=== PATIENT | female | born 1995 | race Caucasian/White ===

== ENCOUNTER 2016-11-21 17:43 | Emergency (ER) | payer MEDICAID ==
[~2016-11-21 17:43] MED LIST: DOXY100T PO; IBUP-232 PO
[2016-11-21 18:46] LABS: MEAN CELL VOLUME 91.2 FL (80.0-100.0); MEAN CORPUSCULAR HEMOGLOBIN 31.6 PG (27.0-34.0); MEAN CORPUSCULAR HGB CONC 34.6 % (32.0-36.0); PLATELET COUNT 200 TH/MM3 (150-450); RED BLOOD COUNT 3.62 MIL/MM3 (4.00-5.30); REVIEW FLAG FINAL; WHITE BLOOD COUNT 13.9 TH/MM3 (4.0-11.0)
[2016-11-21 18:55] LABS: BACTERIA, URINE RARE /hpf; BLOOD, URINE NEG (NEG); COMMENT (UR) CULT NOT INDICATED; CULTURE IF INDICATED CULT NOT INDICATED; GLUCOSE,URINE NEG (NEG); KETONE, URINE NEG (NEG); MUCUS URINE MANY /lpf (OCC); NITRITE,URINE NEG (NEG); SQUAMOUS EPITHELIAL CELL URINE 3 /hpf (0-5); URINE COLOR YELLOW (YELLW/STRAW)
[2016-11-21 19:03] LABS: ANION GAP 8 MEQ/L (5-15); AST (GOT) 14 U/L (15-37); BICARBONATE 22.7 MEQ/L (21.0-32.0); BLOOD UREA NITROGEN 8 MG/DL (7-18); CHLORIDE 104 MEQ/L (98-107); GLOMERULAR FILTRATION RATE 153 ML/MIN (>89); POTASSIUM 3.2 MEQ/L (3.5-5.1); SODIUM (NA) 135 MEQ/L (136-145)
[2016-11-21 19:04] LABS: ALT (GPT) 19 U/L (10-53)
[2016-11-21 19:06] LABS: ALKALINE PHOSPHATASE 87 U/L (45-117); TOTAL BILIRUBIN ADULT 0.2 MG/DL (0.2-1.0)
--- NOTE | 2016-11-21 19:45 | PD ---
HPI Chief Complaint Right-sided back pain, cramping Date Seen: Nov 21, 2016 Travel History International Travel<30 Days: No Contact w/Intl Traveler<30Days: No Known Affected Area: No History of Present Illness HPI Patient is 21-year-old white female at 26 weeks who is unregistered now and relocated back here she has appt with [facility]. She presents complaining of the several days of her right-sided back pain and pain in her right upper quadrant rib area also abdominal lower abdominal cramping, no bleeding or leakage of fluid, no contractions seen. heart rate tracing is reactive. Para: 2 : 3 History Obstetric History Obstetric History 2 vaginal deliveries Social History Alcohol Use: No Tobacco Use: No Substance Abuse: No Allergies-Medications (Allergen,Severity, Reaction): Coded Allergies: ampicillin (Unverified Allergy, Severe, rash, 11/18/16) penicillin G (Unverified Allergy, Severe, RASH, 11/18/16) Home Meds Active Scripts Ibuprofen (Motrin)600 Mg [id number] Mg PO TID #45 TAB Prov:Gama Vasquez MD 04/20/15 Doxycycline Hyclate 100 mg 100 Mg [id number] Mg PO BID #20 CAP Prov:Gama Vasquez MD 04/20/15 Review of Systems General / Constitutional: No: Fever, Weight Gain, Chills, Other Eyes: No: Diploplia, Blurred Vision, Visual changes, Pain, Photophobia HENT: No: Headaches, Vertigo, Lightheadedness Cardiovascular: No: Irregular Rhythm, Chest Pain or Discomfort, Palpitations, Tachycardia, Syncope, Varicosities, Edema, Cyanosis Respiratory: No: Cough, Short of Breath, Other Gastrointestinal: Abdominal Pain, No: Nausea, Vomiting, Diarrhea Genitourinary: No: Decreased Urinary Output, Oliguria Musculoskeletal: No: Limited ROM, Weakness, Cramping, Edema, Pain Skin: No Rash, No Itching, No Dryness, No Lumps, No Change in Pigmentation, No Change in Nails, No Alopecia, No Lesions Neurologic: No: Weakness, Dizziness, Syncope, Focal Abnormalities, Coordination Problem, Headache, Slurred Speech, Seizures Psychiatric: No: Depression, Suicidal Ideations, Homicidal Ideation Endocrine: No: Heat Intolerance, Cold Intolerance, Polydipsia, Polyuria, Other Physical Exam Narrative GENERAL: Well-nourished, well-developed patient. SKIN: Warm and dry. HEAD: Normocephalic and atraumatic. EYES: No scleral icterus. No injection or drainage. ENT: No nasal drainage noted. Mucous membranes pink. Airway patent. NECK: Supple, trachea midline. No JVD. CARDIOVASCULAR: Regular rate and rhythm without murmurs, gallops, or rubs. RESPIRATORY: Breath sounds equal bilaterally. No accessory muscle use. BREASTS: Bilateral exam showed no masses , no retractions, no nipple discharge. ABDOMEN/GI: Abdomen soft, non-tender, bowel sounds present, no rebound, no guarding , some tenderness in RUQ over ribs ,minimal CVAT on R, Gravid to [-26] weeks size Fundal Height: [26-] GENITOURINARY: External Genitalia: intact and normal in appearance BUS glands: [-] Cervix: [Closed-] Dilatation: [Closed-] Effacement: [-]thick Station: [-3] ] Membranes: [intact ] Uterine Contractions: [-none] FHT's: Category: [1-] Baseline: [133-] Reactive: [-yes] Variability: [mod-] Decels: [-none] EXTREMITIES: No cyanosis or edema. BACK: Nontender without obvious deformity. No CVA tenderness. NEUROLOGICAL: Awake and alert. Motor and sensory grossly within normal limits. Five out of 5 muscle strength in all muscle groups. Normal speech. Data Data Orders Vital Signs (Adult) .ON ADMISSION (11/21/16 18:16) ^ Labor Status (11/21/16 18:16) Urinalysis - C+S If Indicated (11/21/16 18:16) Cbc No Diff, Includes Plts (11/21/16 18:16) Comprehensive Metabolic Panel (11/21/16 18:16) Ob/Psych Drug Screen, Urine (11/21/16 18:16) Hepatitis Profile (11/21/16 18:23) Ur Bath Salts (11/21/16 18:15) Ur Heroin (11/21/16 18:15) Ur K2 Spice (11/21/16 18:15) Ur Ecstasy (11/21/16 18:15) Phencyclidine Urine (Pcp) (11/21/16 18:15) Labs Ultrasound gallbladder done and was negative for stones, there is some mild right hydronephrosis noted Laboratory Tests Test 11/21/16 11/21/16 18:15 18:25 Urine Color YELLOW Urine Turbidity CLEAR Urine pH 6.0 Urine Specific [place] 1.029 Urine Protein 30 Urine Glucose (UA) NEG Urine Ketones NEG Urine Occult Blood NEG Urine Nitrite NEG Urine Bilirubin NEG Urine Urobilinogen 2.0 Urine Leukocyte Esterase MOD Urine WBC 2 Urine Squamous Epithelial 3 Cells Urine Bacteria RARE Urine Mucus MANY Microscopic Urinalysis Comment CULT NOT INDICATED Urine Opiates Screen NEG Urine Barbiturates Screen NEG Urine Amphetamines Screen NEG Urine Benzodiazepines Screen NEG Urine Cocaine Screen NEG Urine Cannabinoids Screen POS White Blood Count 13.9 Red Blood Count 3.62 Hemoglobin 11.4 Hematocrit 33.0 Mean Corpuscular Volume 91.2 Mean Corpuscular Hemoglobin 31.6 Mean Corpuscular Hemoglobin 34.6 Concent Red Cell Distribution Width 13.0 Platelet Count 200 Mean Platelet Volume 8.0 Sodium Level 135 Potassium Level 3.2 Chloride Level 104 Carbon Dioxide Level 22.7 Anion Gap 8 Blood Urea Nitrogen 8 Creatinine 0.50 Estimat Glomerular Filtration 153 Rate Random Glucose 89 Calcium Level 7.8 Total Bilirubin 0.2 Aspartate Amino Transf 14 (AST/SGOT) Alanine Aminotransferase 19 (ALT/SGPT) Alkaline Phosphatase 87 Total Protein 6.7 Albumin 3.0 MDM Interpretation(s) She is 21-year-old white female at 26 weeks currently unregistered planning [facility] and has no appointment. Since complaining of back pain and right-sided right rib pain and side pain. Denies contractions bleeding leakage nausea vomiting and diarrhea. She had negative urinalysis tonight, the lab all negative normal liver function seen hepatitis panel drawn this pending for at least 24 hours, patient had ultrasound done with her gallbladder and was negative for stones and they did see some mild right-sided hydronephrosis Plan Plan to discharge patient home to bedrest. We'll give a IM shot of fentanyl for pain tonight. return for worsening symptoms or follow-up with her OB provider Diagnosis Diagnosis: Primary Impression: 26 weeks gestation of Additional Impressions: Right upper quadrant abdominal pain of unknown etiology Back pain complicating in second trimester Disposition: 01 DISCHARGE HOME Condition: Stable Dominick Ayala II, MD Nov 21, 2016 19:45
--- NOTE | 2016-11-21 21:17 | RADRPT ---
EXAM DATE/TIME: 11/21/2016 20:28 [facility] COMPARISON: No previous studies available for comparison. INDICATIONS : Right upper quadrant pain. MEDICAL HISTORY : . Migraine. Depression. Appetite changes. SURGICAL HISTORY : None. ENCOUNTER: Initial ACUITY: 2 days PAIN SCORE: 2/10 LOCATION: Right upper quadrant MEASUREMENTS: LIVER: 16.7 cm length COMMON DUCT: 2 mm RIGHT KIDNEY: 10.4 x 5.4 x 4.8 cm FINDINGS: LIVER: Normal echotexture without focal lesion or ductal dilatation. COMMON DUCT: No intraluminal mass or stone visualized. GALLBLADDER: Contains no stones, demonstrates no wall thickening or pericholecystic fluid. PANCREAS: The visualized portions are within normal limits. RIGHT KIDNEY: Mild prominence of the right renal pelvis. No stones are demonstrated. CONCLUSION: Mild right-sided hydronephrosis. Maurilio Landis MD on November 21, 2016 at 21:14 Board Certified Radiologist. This report was verified electronically.
[2016-11-27 11:56] LABS: BATH SALTS (MDPV) UR NEG (NEG); ECSTASY (MDMA) UR NEG (NEG); GABAPENTIN UR NEG (NEG); HEROIN (6-ACETYLMORPHINE) UR NEG (NEG); HYDROMORPHONE U NEG (NEG); K2 SPICE UR NEG (NEG); OBMETHADONE UR NEG (NEG); PHENCYCLIDINE URINE NEG (NEG)
[2017-01-02] MEDS ORDERED: TERC0.4C2 VAGINAL (12:18)
== END 2016-11-21 21:00 | disposition home or self-care (01) ==
LOC: HOBED 17:43
DX: R10.11 Right upper quadrant pain (principal); M54.5 Low back pain; Z33.1 Pregnant state, incidental; Z3A.26 26 weeks gestation of pregnancy
CPT/HCPCS: 76705; 80053; 80074; 80307; 81001; 85027; 99284; G0481

== ENCOUNTER 2016-12-20 21:18 | Emergency (ER) | payer MEDICAID ==
--- NOTE | 2016-12-20 22:11 | PD ---
HPI Chief Complaint Abdominal pain and pressure Date Seen: Dec 20, 2016 Time Seen: 22:06 Travel History International Travel<30 Days: No Contact w/Intl Traveler<30Days: No Known Affected Area: No History of Present Illness HPI 21-year-old 3 para 2 at 30 weeks 6 days gestation who presents tonight for lower abdominal pressure and possible contractions. She denies dysuria hematuria or frequency. No vaginal discharge or bleeding. She has relocated here from [place] where she had one visit. [facility] but canceled this due to the [place]. Para: 2 : 3 History Past Medical History Medical History: Denies Significant Hx Obstetric History Obstetric History 2 prior vaginal deliveries. Her second was delivered at 36+ weeks after spontaneous labor. She had her prior deliveries here and her blood type is A+. Past Surgical History Surgical History: No Previous Surgery Family History Family History: Negative Social History Alcohol Use: No Tobacco Use: Yes (one half pack per day) Substance Abuse: No Allergies-Medications (Allergen,Severity, Reaction): Coded Allergies: ampicillin (Unverified Allergy, Severe, rash, 11/18/16) penicillin G (Unverified Allergy, Severe, RASH, 11/18/16) Home Meds Active Scripts Ibuprofen (Motrin) 600 Mg Tab, 600 MG PO TID, #45 TAB Prov:Gama Vasquez MD 04/20/15 Doxycycline Hyclate 100 mg (Doxycycline Hyclate 100 mg) 100 Mg Cap, 100 MG PO BID, #20 CAP Prov:Gama Vasquez MD 04/20/15 Review of Systems Except as stated in HPI: all other systems reviewed are Neg Physical Exam Narrative GENERAL: Well-nourished, well-developed patient. SKIN: Warm and dry. HEAD: Normocephalic and atraumatic. EYES: No scleral icterus. No injection or drainage. ENT: No nasal drainage noted. Mucous membranes pink. Airway patent. NECK: Supple, trachea midline. No JVD. CARDIOVASCULAR: Regular rate and rhythm without murmurs, gallops, or rubs. RESPIRATORY: Breath sounds equal bilaterally. No accessory muscle use. ABDOMEN/GI: Abdomen soft, non-tender, bowel sounds present, no rebound, no guarding Gravid to [-] weeks size Fundal Height: [-] GENITOURINARY: External Genitalia: intact and normal in appearance BUS glands: [-] Cervix: [-] Dilatation: [-Closed] Effacement: [Long-] Station: [High-] Presentation: [-] Membranes: [intact] Uterine Contractions: [-None] FHT's: Category: [-] Baseline: [-] Reactive: [Yes-] Variability: [-] Decels: [-] EXTREMITIES: No cyanosis or edema. BACK: Nontender without obvious deformity. No CVA tenderness. NEUROLOGICAL: Awake and alert. Motor and sensory grossly within normal limits. Five out of 5 muscle strength in all muscle groups. Normal speech. MDM Medical Record Reviewed: Yes Narrative Course / MDM Assessment: 30+ week with minimal care without evidence of contractions. Plan: The patient is encouraged to decrease her tobacco use. She was encouraged to follow-up for her visit as scheduled. Diagnosis Diagnosis: Primary Impression: 30 weeks gestation of Additional Impression: Abdominal pain affecting Disposition: 01 DISCHARGE HOME Mayco Kay MD Dec 20, 2016 22:11
[2017-01-02] MEDS ORDERED: TERC0.4C2 VAGINAL (12:18)
== END 2016-12-20 22:29 | disposition home or self-care (01) ==
LOC: HOBED 21:18
DX: O26.893 Other specified pregnancy related conditions, third trimester (principal); R10.30 Lower abdominal pain, unspecified; O99.333 Smoking (tobacco) complicating pregnancy, third trimester; Z3A.30 30 weeks gestation of pregnancy; Z88.0 Allergy status to penicillin; Z79.899 Other long term (current) drug therapy
CPT/HCPCS: 99283

== ENCOUNTER → 2017-01-15 | Outpatient (CLI) | payer MEDICAID ==
[~2017-01-15] MED LIST changes: -DOXY100T PO; -IBUP-232 PO; +TERC0.4C2 VAGINAL
== END ==
LOC: HPND 08:56
PROVIDERS: ATTEND Obstetrics & Gynecology
DX: O09.33 Supervision of pregnancy with insufficient antenatal care, third trimester (principal)
CPT/HCPCS: 76816

== ENCOUNTER → 2017-02-02 | Outpatient (CLI) | payer MEDICAID ==
[~2017-02-02] MED LIST changes: +LANC1MIS74; +ONETTES4
== END ==
LOC: CDED 14:22
PROVIDERS: ATTEND Obstetrics & Gynecology
DX: O24.419 Gestational diabetes mellitus in pregnancy, unspecified control (principal)
CPT/HCPCS: 97802

== ENCOUNTER 2017-02-10 21:15 | Emergency (ER) | payer MEDICAID ==
[~2017-02-10 21:15] MED LIST changes: -TERC0.4C2 VAGINAL
--- NOTE | 2017-02-10 21:51 | PD ---
HPI Chief Complaint Contractions Date Seen: Feb 10, 2017 Time Seen: 21:46 Travel History International Travel<30 Days: No Contact w/Intl Traveler<30Days: No Known Affected Area: No History of Present Illness HPI 21-year-old who is at 38 weeks 2 days comes complaining of irregular contractions since this afternoon. Patient experienced multiple episodes of diarrhea earlier today which seems to have improved with the last episode occurring at 4 PM. Patient started having irregular contractions throughout the day and they have not progressed or become more intense. Patient denies vaginal discharge or vaginal bleeding and is having good movement. Patient denies any nausea vomiting and she is having normal oral intake. Patient is a diet-controlled gestational diabetic and is [facility] with an appointment that occurs on of this week with an ultrasound for weight. Patient has a history of what she states was shoulder dystocia 2 but I reviewed her last vaginal delivery note performed by Dr. Garcia and there was no shoulder dystocia that was documented. She states that both of her children have had a clavicular fracture at delivery and that she was considering a primary section with her provider in the office. Weeks Gestation: 38 Para: 2 : 3 History Past Medical History Medical History: Denies Significant Hx Obstetric History Obstetric History Spontaneous vaginal delivery x 2. I have documentation only on her last vaginal delivery which occurred here at [facility] Gestational diabetes diet controlled this Past Surgical History Surgical History: No Previous Surgery Family History Family History: Negative Social History Alcohol Use: No Tobacco Use: No Substance Abuse: No Allergies-Medications (Allergen,Severity, Reaction): Coded Allergies: ampicillin (Unverified Allergy, Severe, rash, 02/02/17) penicillin G (Unverified Allergy, Severe, RASH, 02/02/17) amoxicillin (Verified Allergy, Intermediate, rash, 02/02/17) Home Meds Active Scripts Onetouch Delica Lancets E (Onetouch Delica Lancets E) 33 Gauge Mis, EA .ROUTE DIRECTED for Blood Sugar Management, #1 1 Refill Prov:Kiana Castillo CNM [facility] 02/06/17 Onetouch Ultra Test Strips (Onetouch Ultra Test Strips) 1 Becky Becky, STRIP .ROUTE DIRECTED for Blood Sugar Management, #1 1 Refill Prov:Kiana Castillo CNM [facility] 02/06/17 Vit W/ Fe Polysacch C (Vitafol Ultra 29-0.6-0.4-200 mg) 29 Mg Iron-1 Mg -200 Mg Cap Prov:Paz Troncoso [facility] 12/29/16 Review of Systems Except as stated in HPI: all other systems reviewed are Neg Physical Exam Narrative GENERAL: Well-nourished, well-developed patient. SKIN: Warm and dry. HEAD: Normocephalic and atraumatic. EYES: No scleral icterus. No injection or drainage. ENT: No nasal drainage noted. Mucous membranes pink. Airway patent. NECK: Supple, trachea midline. No JVD. CARDIOVASCULAR: Regular rate and rhythm without murmurs, gallops, or rubs. RESPIRATORY: Breath sounds equal bilaterally. No accessory muscle use. ABDOMEN/GI: Abdomen soft, non-tender, bowel sounds present, no rebound, no guarding Gravid to [-] weeks size Fundal Height: [-] GENITOURINARY: External Genitalia: intact and normal in appearance BUS glands: [-Normal] Cervix: [-Posterior] Dilatation: [-1] Effacement: [-Long] Station: [--3] Presentation: [-Vertex] Membranes: [intact ] Uterine Contractions: [Rare irregular contractions-] FHT's: Category: [-1] Baseline: [-140] Reactive: [-Moderate] Variability: [-Moderate] Decels: [-Absent] EXTREMITIES: No cyanosis or edema. BACK: Nontender without obvious deformity. No CVA tenderness. NEUROLOGICAL: Awake and alert. Motor and sensory grossly within normal limits. Five out of 5 muscle strength in all muscle groups. Normal speech. Data Data Vital Signs Reviewed: Yes [facility] Medical Record Reviewed: Yes Plan 21-year-old with irregular contractions at 38 weeks 2 days, not in labor at this time. Diarrhea seems to have improved but we discussed adequate oral hydration with electrolyte containing fluids and the use of Imodium if necessary Discussed returning back to the hospital for inability to tolerate fluids or high fever Labor precautions Diagnosis Diagnosis: Primary Impression: 38 weeks gestation of Additional Impressions: False labor after 37 completed weeks of gestation Gestational diabetes, diet controlled Disposition: 01 DISCHARGE HOME Alessandra Mcneal MD Feb 10, 2017 21:51
== END 2017-02-11 00:33 | disposition home or self-care (01) ==
LOC: HOBED 21:15
DX: O47.1 False labor at or after 37 completed weeks of gestation (principal); R19.7 Diarrhea, unspecified; O24.419 Gestational diabetes mellitus in pregnancy, unspecified control; Z3A.38 38 weeks gestation of pregnancy; Z88.0 Allergy status to penicillin; Z79.899 Other long term (current) drug therapy
CPT/HCPCS: 59025

== ENCOUNTER → 2017-02-12 | Outpatient (CLI) | payer MEDICAID | LOC: HPND 09:28 | PROVIDERS: ATTEND Obstetrics & Gynecology | DX: O09.33 Supervision of pregnancy with insufficient antenatal care, third trimester (principal); O26.843 Uterine size-date discrepancy, third trimester | CPT/HCPCS: 76816 ==

== ENCOUNTER 2017-02-20 08:44 | Inpatient (IN) | payer MEDICAID ==
[~2017-02-20] VITALS: Ht 157.5 cm; Wt 74.3 kg
[2017-02-20] VITALS (7 sets, daily range): BP systolic 106–128; BP diastolic 58–75; PULSE 68–91; RESP 16–19; TEMP 97.5–97.9; O2SAT 98–100
[2017-02-20 09:56] LABS: AUTOMATED NEUTROPHIL # 8.6 TH/MM3 (1.8-7.7); BASOPHIL % 0.3 % (0.0-2.0); EOSINOPHIL # 0.7 TH/MM3 (0-0.4); EOSINOPHIL % 5.4 % (0.0-4.0); HEMATOCRIT 33.2 % (35.0-46.0); HEMO FLAGS DIFF FINAL; LYMPH % 18.4 % (9.0-44.0); LYMPHOCYTE # 2.3 TH/MM3 (1.0-4.8); MEAN CELL VOLUME 82.3 FL (80.0-100.0); MEAN CORPUSCULAR HEMOGLOBIN 27.6 PG (27.0-34.0); MEAN CORPUSCULAR HGB CONC 33.5 % (32.0-36.0); MONO % 8.2 % (0.0-8.0); NEUT % 67.7 % (16.0-70.0); PLATELET COUNT 315 TH/MM3 (150-450); RED BLOOD COUNT 4.04 MIL/MM3 (4.00-5.30); RED CELL DISTRIBUTION WIDTH 14.8 % (11.6-17.2); WHITE BLOOD COUNT 12.8 TH/MM3 (4.0-11.0)
[2017-02-20] MEDS ORDERED: MINERAL OIL 10 ML VIAL TOPICAL PRN (10:15)
[2017-02-20] MEDS ORDERED: CITRIC ACID-SODIUM CITRATE LIQ 30 ML UDC PO SCH (10:15)
[2017-02-20] MEDS ORDERED: CLINDAMYCIN 600 MG/NS 100 ML IV SCH ×2 (10:15)
[2017-02-20] MEDS ORDERED: LIDOCAINE HCL 1% 50 ML VIAL INFIL PRN (10:15)
[2017-02-20] MEDS ORDERED: OXYTOCIN 30 UNITS 500ML PREMIX IV ONE (10:15)
[2017-02-20] MEDS ORDERED: LACTATED RINGER'S 1000 ML IV ONE (10:15)
[2017-02-20 10:18] LABS: BLOOD, URINE NEG (NEG); GLUCOSE,URINE NEG (NEG); KETONE, URINE NEG (NEG); NITRITE,URINE NEG (NEG); PH, URINE 6.5 (5.0-8.5); URINE COLOR YELLOW (YELLW/STRAW)
[2017-02-20 10:24] LABS: BACTERIA, URINE FEW /hpf; SQUAMOUS EPITHELIAL CELL URINE > 8 /hpf (0-5)
[2017-02-20 10:25] LABS: COMMENT (UR) CULTURE INDICATED; CULTURE IF INDICATED CULTURE INDICATED
[2017-02-20] MEDS ORDERED: LIDOCAINE HCL 1% 50 ML VIAL I-DERMAL PRN (10:30)
[2017-02-20] MEDS ORDERED: NS 500 ML BOLUS IV PRN (10:30)
[2017-02-20] MEDS ORDERED: NS 1000 ML IV PRN (10:30)
[2017-02-20] MEDS ORDERED: LACTATED RINGER'S 1000 ML BOLUS IV ONE (10:30)
--- NOTE | 2017-02-20 10:32 | HHI.HP ---
History & Physical H&P Patient Name: Xena Herrera Unit Number: [id number] Date of : 1995 Patient Status: Registered Clinic Attending Doctor: Dominick Ayala II, MD HPI HPI Chief Complaint Patient's 39 week intrauterine for section consultation Date Seen: Feb 16, 2017 Time Seen: 14:00 Travel History International Travel<30 Days: No Contact w/Intl Traveler<30Days: No Known Affected Area: No History of Present Illness HPI Patient is 21-year-old white female at 39 weeks presents for . Patient's previous 2 vaginal deliveries were both 8 and one half pounds shoulder dystocia resulting in broken clavicles in both babies. She was counseled to potentially do a tubal ligation this time and is what she wants and that's what I agree that she can have. She'll occasionally this baby recent ultrasound showed 7 lbs. 14 oz., baby active heart rate tracing reactive and no contractions, Weeks Gestation: 39 Para: 2 : 3 History (Limited) History Obstetric History Obstetric History Patient had 2 vaginal deliveries both with obstetric trauma shoulder dystocia and broken clavicle on both babies no other long-term injuries were noted. Patient was counseled for this time and I agree with that assessment Social History Narrative Social History Smokes half pack a day Alcohol Use: No Tobacco Use: Yes Substance Abuse: No Allergies-Medications Allergies-Medications (Allergen,Severity, Reaction): Coded Allergies: ampicillin (Unverified Allergy, Severe, rash, 02/12/17) penicillin G (Unverified Allergy, Severe, RASH, 02/12/17) amoxicillin (Verified Allergy, Intermediate, rash, 02/12/17) Home Meds Active Scripts Onetouch Delica Lancets E (Onetouch Delica Lancets E) 33 Gauge Mis, EA .ROUTE DIRECTED for Blood Sugar Management, #1 1 Refill Prov:Kiana Castillo CN[facility] 02/06/17 Onetouch Ultra Test Strips (Onetouch Ultra Test Strips) 1 Becky Becky, STRIP .ROUTE DIRECTED for Blood Sugar Management, #1 1 Refill Prov:Kiana Castillo CNM [facility] 02/06/17 Vit W/ Fe Polysacch C (Vitafol Ultra 29-0.6-0.4-200 mg) 29 Mg Iron-1 Mg -200 Mg Cap Prov:Paz Troncoso 12/29/16 ROS Review of Systems General / Constitutional: No: Fever, Weight Gain, Chills, Other Eyes: No: Diploplia, Blurred Vision, Visual changes, Pain, Photophobia HENT: No: Headaches, Vertigo, Lightheadedness Cardiovascular: No: Irregular Rhythm, Chest Pain or Discomfort, Palpitations, Tachycardia, Syncope, Varicosities, Edema, Cyanosis Respiratory: No: Cough, Short of Breath, Other Gastrointestinal: No: Nausea, Vomiting, Diarrhea Genitourinary: No: Decreased Urinary Output, Oliguria Musculoskeletal: No: Limited ROM, Weakness, Cramping, Edema, Pain Skin: No Rash, No Itching, No Dryness, No Lumps, No Change in Pigmentation, No Change in Nails, No Alopecia, No Lesions Neurologic: No: Weakness, Dizziness, Syncope, Focal Abnormalities, Coordination Problem, Headache, Slurred Speech, Seizures Psychiatric: No: Depression, Suicidal Ideations, Homicidal Ideation Endocrine: No: Heat Intolerance, Cold Intolerance, Polydipsia, Polyuria, Other Physical Exam Physical Exam Narrative GENERAL: Well-nourished, well-developed patient. SKIN: Warm and dry. HEAD: Normocephalic and atraumatic. EYES: No scleral icterus. No injection or drainage. ENT: No nasal drainage noted. Mucous membranes pink. Airway patent. NECK: Supple, trachea midline. No JVD. CARDIOVASCULAR: Regular rate and rhythm without murmurs, gallops, or rubs. RESPIRATORY: Breath sounds equal bilaterally. No accessory muscle use. BREASTS: Bilateral exam showed no masses , no retractions, no nipple discharge. ABDOMEN/GI: Abdomen soft, non-tender, bowel sounds present, no rebound, no guarding Gravid to [-39] weeks size Fundal Height: [-39] GENITOURINARY: External Genitalia: intact and normal in appearance BUS glands: [-] Cervix: [0-] Dilatation: [0-] Effacement: [-thick] Station: [-3] Presentation: [-vtx] Membranes: [intact ] Uterine Contractions: [0-] FHT's: Category: [1-] Baseline: [-133] Reactive: [-yes] Variability: [-mod] Decels: [-0] EXTREMITIES: No cyanosis or edema. BACK: Nontender without obvious deformity. No CVA tenderness. NEUROLOGICAL: Awake and alert. Motor and sensory grossly within normal limits. Five out of 5 muscle strength in all muscle groups. Normal speech. Data Data MDM MDM Interpretation(s) Patient is a 21-year-old white female 39 weeks who presents for section with this and tubal ligation. She had 2 previous vaginal deliveries were both shoulder dystocias and 8 1 /2 pounds both babies broken clavicles, she was counseled that she should have a this time is what she wants agree with that. She also wants her tubes tied tubal papers at bedside. Plan section 02/20/17 when she is 2 days shy of 40 weeks Plan Plan is elective section after history of due to shoulder dystocias last 2 deliveries resulting in the injury Diagnosis: history of shoulder dystocia 2 obstetric trauma Disposition: ADMIT Condition: Stable Dominick Ayala II, MD Feb 042016 14:04 Dominick Ayala II, MD Feb 20, 2017 10:32
[2017-02-20 10:34] LABS: ALT (GPT) 33 U/L (10-53); ANION GAP 9 MEQ/L (5-15); AST (GOT) 34 U/L (15-37); BICARBONATE 21.5 MEQ/L (21.0-32.0); BLOOD UREA NITROGEN 11 MG/DL (7-18); CHLORIDE 108 MEQ/L (98-107); GLOMERULAR FILTRATION RATE 187 ML/MIN (>89); POTASSIUM 3.9 MEQ/L (3.5-5.1); SODIUM (NA) 138 MEQ/L (136-145)
[2017-02-20 10:37] LABS: ALKALINE PHOSPHATASE 265 U/L (45-117); TOTAL BILIRUBIN ADULT 0.3 MG/DL (0.2-1.0)
[2017-02-20] MEDS ORDERED: LACTATED RINGER'S 1000 ML IV SCH ×2 (10:45→11:00)
[2017-02-20] MEDS ORDERED: CLINDAMYCIN 600 MG PREMIX 50 ML IV SCH (11:00)
[2017-02-20] MEDS ORDERED: EPIDURAL-NO SYSTEMIC NARCOTICS PRN (11:10)
[2017-02-20] MEDS ORDERED: EPIDURAL-DO NOT ADMINISTER ANTICOAGULANTS PRN (11:10)
[2017-02-20] MEDS ORDERED: EPIDURAL-DIPHENHYDRAMINE HCL 50 MG CAP PO PRN (11:10)
[2017-02-20] MEDS ORDERED: EPIDURAL-DIPHENHYDRAMINE HCL 50 MG/ML VIAL IV PUSH PRN (11:10)
[2017-02-20] MEDS ORDERED: EPIDURAL-NALOXONE HCL 0.4 MG/ML AMP IV PUSH PRN (11:10)
[2017-02-20] MEDS ORDERED: SIMETHICONE 80 MG CHEWABLE TAB PO PRN (12:30)
[2017-02-20] MEDS ORDERED: DOCUSATE SODIUM 50 MG/SENNA 8.6 MG TAB PO PRN (12:30)
[2017-02-20] MEDS ORDERED: oxyCODONE/ACETAMINOPHEN 5 MG/325 MG TAB PO PRN (12:30)
[2017-02-20] MEDS ORDERED: ONDANSETRON HCL 4 MG/2 ML VIAL IV PUSH PRN (12:30)
[2017-02-20] MEDS ORDERED: SODIUM CHLORIDE 0.9% FLUSH 10 ML FLUSH IV FLUSH PRN (12:30)
[2017-02-20] MEDS ORDERED: OXYTOCIN 30 UNITS-500ML PREMIX 500 ML IV ONE (12:30)
[2017-02-20] MEDS ORDERED: ACETAMINOPHEN 325 MG TAB PO PRN (12:30)
[2017-02-20] MEDS ORDERED: CLINDAMYCIN 900 MG PREMIX 50 ML IV SCH (13:00)
[2017-02-20] MEDS ORDERED: OXYTOCIN 30 UNITS-500ML PREMIX 500 ML ONE (13:00)
[2017-02-20] MEDS ORDERED: ACETAMINOPHEN 1000 MG/100 ML 100 ML IV ONE ×2 (13:01→14:30)
[2017-02-20] MEDS ORDERED: KETOROLAC TROMETHAMINE 30 MG/ML (IVP) VIAL IV PUSH PRN (14:30)
[2017-02-20] MEDS ORDERED: CLINDAMYCIN INJ 900 MG in SODIUM CHLORIDE 0.9% INJ 100 ML IV SCH (17:00)
[2017-02-20] MEDS ORDERED: LACTATED RINGER'S 1000 ML INJ 1,000 ML IV SCH (17:18)
[2017-02-20] MEDS: CLINDAMYCIN 900 MG PREMIX 50 ML IV SCH (18:22)
[2017-02-20] MEDS: SODIUM CHLORIDE 0.9% FLUSH 10 ML FLUSH IV FLUSH SCH (21:00)
[2017-02-20] MEDS ORDERED: ZOLPIDEM TARTRATE 5 MG TAB PO PRN (21:00)
[2017-02-20] MEDS ORDERED: OXYTOCIN 30 UNITS-500ML PREMIX 500 ML IV PRN (22:30)
[2017-02-21 00:30] VITALS: BP 109/58; PULSE 87; RESP 16; TEMP 99.1
[2017-02-21] MEDS: oxyCODONE/ACETAMINOPHEN 5 MG/325 MG TAB PO PRN ×5 (00:46→20:06)
[2017-02-21] MEDS: CLINDAMYCIN 900 MG PREMIX 50 ML IV SCH ×2 (01:10→11:09)
[2017-02-21 04:25] VITALS: BP 99/64; PULSE 82; RESP 16; TEMP 98.4
[2017-02-21] MEDS: IBUPROFEN 600 MG TAB PO PRN ×3 (04:50→20:07)
[2017-02-21 05:24] LABS: AUTOMATED NEUTROPHIL # 10.4 TH/MM3 (1.8-7.7); BASOPHIL % 0.2 % (0.0-2.0); EOSINOPHIL # 0.3 TH/MM3 (0-0.4); EOSINOPHIL % 2.5 % (0.0-4.0); HEMATOCRIT 30.4 % (35.0-46.0); HEMO FLAGS DIFF FINAL; LYMPH % 16.9 % (9.0-44.0); LYMPHOCYTE # 2.3 TH/MM3 (1.0-4.8); MEAN CELL VOLUME 82.1 FL (80.0-100.0); MEAN CORPUSCULAR HEMOGLOBIN 26.8 PG (27.0-34.0); MEAN CORPUSCULAR HGB CONC 32.6 % (32.0-36.0); MONO % 5.3 % (0.0-8.0); NEUT % 75.1 % (16.0-70.0); PLATELET COUNT 262 TH/MM3 (150-450); WHITE BLOOD COUNT 13.8 TH/MM3 (4.0-11.0)
--- NOTE | 2017-02-21 07:29 | HHI.OB ---
Subjective Post Operative Day: 1 Remarks Postop day 1 from scheduled Patient is doing well, has ambulated well tolerating her diet, no flatus a BM yet,, been voiding spontaneously Objective Vitals/I&O Vital Signs Date Time Temp Pulse Resp B/P (MAP) Pulse Ox O2 Delivery O2 Flow Rate FiO2 02/21/17 04:25 98.4 82 16 99/64 (76) 02/21/17 00:30 99.1 87 16 109/58 (75) 02/20/17 19:35 97.9 91 18 106/58 (74) 98 02/20/17 14:16 97.6 16 99 02/20/17 14:16 68 128/67 (87) 02/20/17 13:00 75 18 116/68 (84) 100 02/20/17 13:00 97.8 02/20/17 12:45 77 18 113/60 (77) 100 02/20/17 12:30 112/58 (76) 02/20/17 12:30 97.8 02/20/17 12:30 79 19 100 02/20/17 09:06 97.5 02/20/17 09:06 89 117/75 (89) 02/20/17 09:05 18 Result Diagram: 02/21/17 0454 02/20/17 0915 Objective Remarks GENERAL: Well-nourished, well-developed patient. CARDIOVASCULAR: Regular rate and rhythm without murmurs, gallops, or rubs. RESPIRATORY: Breath sounds equal bilaterally. No accessory muscle use. ABDOMEN/GI: Abdomen soft, non-tender, bowel sounds present. Incision: Clean, dry and intact. Bandages dry Fundus: Firm, non-tender at umbilicus. GENITOURINARY: Light to moderate bleeding. EXTREMITIES: No cyanosis or edema, non-tender, without signs of DVT. Medications and IVs Current Medications Medications (Trade) Dose Ordered Sig/Elena Route Start Time Stop Time Status Last Admin (Bicitra Liq) 30 ml [employer] PO 02/20/17 10:15 02/23/17 10:14 02/20/17 10:39 (Muri-Lube Oil) 10 ml UNSCH PRN TOPICAL 02/20/17 10:15 Lactated Ringer's 1,000 ml @ 100 mls/hr Q10H IV 02/20/17 17:18 02/21/17 13:17 Oxytocin 500 ml @ 100 mls/hr UNSCH X1 PRN IV 02/20/17 22:30 02/21/17 22:29 (NS Flush) 2 ml BID IV FLUSH 02/20/17 21:00 (NS Flush) 2 ml UNSCH PRN IV FLUSH 02/20/17 12:30 (Mylicon Chew) 80 mg QID PRN PO 02/20/17 12:30 (Tylenol) 650 mg Q6H PRN PO 02/20/17 12:30 (Motrin) 600 mg Q6H PRN PO 02/20/17 12:30 02/21/17 04:50 (Percocet 5-325 Mg) 1 tab Q4H PRN PO 02/20/17 12:30 (Percocet 5-325 Mg) 2 tab Q4H PRN PO 02/20/17 12:30 02/21/17 04:49 (Ann Marie-Colace) 2 tab Q12H PRN PO 02/20/17 12:30 02/21/17 04:49 (Ambien) 5 mg HS PRN PO 02/20/17 21:00 (M-M-R Ii Inj) 0.5 ml ONCE ONCE SQ 02/21/17 16:00 02/21/17 16:01 (Boostrix Inj) 0.5 ml ONCE ONCE IM 02/21/17 16:00 02/21/17 16:01 (Zofran Inj) 4 mg Q6H PRN IV PUSH 02/20/17 12:30 Clindamycin/ Sodium Chloride 50 ml @ 208 mls/hr Q8H IV 02/20/17 17:00 02/21/17 09:15 02/21/17 01:10 Miscellaneous Information NO SYSTEMIC NARCOTICS TO BE GIVEN FO... UNSCH PRN .XX 02/20/17 11:10 02/21/17 11:09 (Narcan Inj) 0.4 mg UNSCH PRN IV PUSH 02/20/17 11:10 02/21/17 11:09 (Benadryl Inj) 25 mg Q6H PRN IV PUSH 02/20/17 11:10 02/21/17 11:09 (Benadryl) 50 mg Q6H PRN PO 02/20/17 11:10 02/21/17 11:09 Miscellaneous Information ALL NURSING DEPARTMENTS UNSCH PRN .XX 02/20/17 11:10 02/21/17 11:09 Assessment/Plan Assessment and Plan Postoperative DAY 1 scheduled , doing well initially no problems with ambulation her diet. Plan progressive postop course Dominick Ayala II, MD Feb 21, 2017 07:28
[2017-02-21 07:30] VITALS: BP 109/54; PULSE 78; RESP 16; TEMP 97.4
[2017-02-21 12:30] VITALS: BP 96/61; PULSE 80; RESP 16; TEMP 97.8
[2017-02-21] MEDS ORDERED: MEASLES, MUMPS, RUBELLA VACCINE 0.5 ML VIAL SQ ONE (16:00)
[2017-02-21] MEDS ORDERED: DIPHTH/TETANUS/ACEL PERTUSSIS (BOOSTER) 0.5 ML VIAL/PFS IM ONE (16:00)
[2017-02-21 20:30] VITALS: BP 109/63; PULSE 85; RESP 17; TEMP 97.4; O2SAT 98
[2017-02-22] MEDS: oxyCODONE/ACETAMINOPHEN 5 MG/325 MG TAB PO PRN ×4 (03:00→19:23)
[2017-02-22] MEDS: IBUPROFEN 600 MG TAB PO PRN ×4 (03:00→22:37)
[2017-02-22 09:40] VITALS: BP 114/72; PULSE 87; RESP 16; TEMP 98.5
[2017-02-22] MEDS: SODIUM CHLORIDE 0.9% FLUSH 10 ML FLUSH IV FLUSH SCH (09:46)
--- NOTE | 2017-02-22 10:42 | HHI.OB ---
Subjective Post Operative Day: 2 Remarks Pt seen and examined this morning. Postoperative day # 2 AFVSS overnight. Incision not draining. Decreased lochia. Denies dysuria. No breast tenderness. She is feeding the baby via breast and bottle. Appetite good. No nausea or vomiting. Patient has not yet had a bowel movement, but does endorse passing bowel gas. Ambulating well. Denies calf pain or shortness of breath. Otherwise, she is doing well this morning and has no other concerns. Objective Vitals/I&O Vital Signs Date Time Temp Pulse Resp B/P (MAP) Pulse Ox O2 Delivery O2 Flow Rate FiO2 02/21/17 20:30 97.4 85 17 109/63 (78) 98 02/21/17 12:30 97.8 80 16 96/61 (73) Result Diagram: 02/21/17 0454 02/20/17 0915 Objective Remarks GENERAL: Well-nourished, well-developed patient. CARDIOVASCULAR: Regular rate and rhythm without murmurs, gallops, or rubs. RESPIRATORY: Breath sounds equal bilaterally. No accessory muscle use. ABDOMEN/GI: Abdomen soft, non-tender, bowel sounds present. Incision: Clean, dry and intact. Bandages dry Fundus: Firm, non-tender at umbilicus. GENITOURINARY: Light to moderate bleeding. EXTREMITIES: No cyanosis or edema, non-tender, without signs of DVT. Medications and IVs Current Medications Medications (Trade) Dose Ordered Sig/Elena Route Start Time Stop Time Status Last Admin (Bicitra Liq) 30 ml SALES REPRESENTATIVE GROCERIES PO 02/20/17 10:15 02/23/17 10:14 02/20/17 10:39 (Muri-Lube Oil) 10 ml UNSCH PRN TOPICAL 02/20/17 10:15 (NS Flush) 2 ml BID IV FLUSH 02/20/17 21:00 02/22/17 09:46 (NS Flush) 2 ml UNSCH PRN IV FLUSH 02/20/17 12:30 (Mylicon Chew) 80 mg QID PRN PO 02/20/17 12:30 02/21/17 14:05 (Tylenol) 650 mg Q6H PRN PO 02/20/17 12:30 (Motrin) 600 mg Q6H PRN PO 02/20/17 12:30 02/22/17 09:18 (Percocet 5-325 Mg) 1 tab Q4H PRN PO 02/20/17 12:30 (Percocet 5-325 Mg) 2 tab Q4H PRN PO 02/20/17 12:30 02/22/17 09:17 (Ann Marie-Colace) 2 tab Q12H PRN PO 02/20/17 12:30 02/21/17 04:49 (Ambien) 5 mg HS PRN PO 02/20/17 21:00 (Zofran Inj) 4 mg Q6H PRN IV PUSH 02/20/17 12:30 Assessment/Plan Assessment and Plan 21 y/o female who is post operative # 2 s/p primary . -Continue routine care. -Percocet and Motrin PRN pain. -Encouraged OOB. Advised pelvic rest for 6 wks. will need follow-up appointment in 1 week for incision check. -Re: ctrl, she would like discuss her options at her follow-up appointment. -Anticipate discharge tomorrow, 02/23. MD Kumar Mariee Dr[address]Munir Taveras MD R2 Feb 22, 2017 10:42
[2017-02-22 19:55] VITALS: BP 119/67; PULSE 77; RESP 16; TEMP 97.7
[2017-02-23] MEDS: IBUPROFEN 600 MG TAB PO PRN ×2 (04:47→11:09)
[2017-02-23] MEDS: oxyCODONE/ACETAMINOPHEN 5 MG/325 MG TAB PO PRN ×2 (04:47→09:51)
[2017-02-23 07:35] VITALS: BP 136/79; PULSE 80; RESP 18; TEMP 97.6
[2017-02-23] MEDS ORDERED: OXYC1TAB63 PO (08:09)
[2017-02-23] MEDS ORDERED: IBUP-232 PO (08:09)
--- NOTE | 2017-02-23 08:10 | HHI.DCPOC ---
Discharge Care Plan Report Symptoms to Your Doctor -Temperature above 100.5 degrees -Redness, of incision or excessive or foul smelling drainage -Unusual pain or calf pain -Increased vaginal bleeding -Painful or difficulty urinating -Feelings of extreme sadness or anxiety after 2 weeks Goals to Promote Your Health * To prevent worsening of your condition and complications * To maintain your health at the optimal level Directions to Meet Your Goals Take your medications as prescribed Follow your dietary instruction Follow activity as directed Ensure plenty of rest for recovery Drink fluids for hydration Keep your appointments as scheduled Take your immunizations and boosters as scheduled If your symptoms worsen call your PCP, if no PCP go to Urgent Care Center or Emergency Room Smoking is Dangerous to Your Health. Avoid second hand smoke Call the 24-hour crisis hotline for domestic abuse at Herve Wallace MD R1 Feb 23, 2017 08:10
--- NOTE | 2017-02-23 08:12 | HHI.OB ---
Subjective Remarks Patient is a 21-year-old delivered at 39 weeks and 5 days. Patient is day 3 after . Patient's pain is well-controlled. Patient reports eating and drinking without any nausea or vomiting. Patient reports minimal bleeding. Patient has passed gas and bowel movements. Patient is walking without lower extremity pain or shortness of breath. Patient reports desire for contraception with tubal ligation and hands to both formula and breast-feeding. Objective Vitals/I&O Vital Signs Date Time Temp Pulse Resp B/P (MAP) Pulse Ox O2 Delivery O2 Flow Rate FiO2 02/22/17 19:55 97.7 77 16 119/67 (84) 02/22/17 10:17 16 02/22/17 10:17 16 02/22/17 09:40 98.5 87 16 114/72 (86) Result Diagram: 02/21/17 0454 02/20/17 0915 Objective Remarks GENERAL: Well-nourished, well-developed patient. CARDIOVASCULAR: Regular rate and rhythm without murmurs, gallops, or rubs. RESPIRATORY: Breath sounds equal bilaterally. No accessory muscle use. ABDOMEN/GI: Abdomen soft, non-tender, bowel sounds present. Incision: Clean, dry and intact. Bandages dry Fundus: Firm, non-tender at umbilicus. GENITOURINARY: Light to moderate bleeding. EXTREMITIES: No cyanosis or edema, non-tender, without signs of DVT. Medications and IVs Current Medications Medications (Trade) Dose Ordered Sig/Elena Route Start Time Stop Time Status Last Admin (Bicitra Liq) 30 ml MANAGER MASSAGE DEPARTMENT PO 02/20/17 10:15 02/23/17 10:14 02/20/17 10:39 (Muri-Lube Oil) 10 ml UNSCH PRN TOPICAL 02/20/17 10:15 (NS Flush) 2 ml BID IV FLUSH 02/20/17 21:00 02/22/17 09:46 (NS Flush) 2 ml UNSCH PRN IV FLUSH 02/20/17 12:30 (Mylicon Chew) 80 mg QID PRN PO 02/20/17 12:30 02/21/17 14:05 (Tylenol) 650 mg Q6H PRN PO 02/20/17 12:30 (Motrin) 600 mg Q6H PRN PO 02/20/17 12:30 02/23/17 04:47 (Percocet 5-325 Mg) 1 tab Q4H PRN PO 02/20/17 12:30 (Percocet 5-325 Mg) 2 tab Q4H PRN PO 02/20/17 12:30 02/23/17 04:47 (Ann Marie-Colace) 2 tab Q12H PRN PO 02/20/17 12:30 02/21/17 04:49 (Ambien) 5 mg HS PRN PO 02/20/17 21:00 (Zofran Inj) 4 mg Q6H PRN IV PUSH 02/20/17 12:30 Assessment/Plan Assessment and Plan 21 y/o female who is post operative # 3 s/p primary . -Continue routine care. -Percocet and Motrin PRN pain. -Encouraged OOB. Advised pelvic rest for 6 wks. will need follow-up appointment in 1 week for incision check. -Re: ctrl, she would like discuss her options at her follow-up appointment with thoughts of tubal ligation. -Anticipate discharge today, 02/23. bre Mcneal MD Discharge Planning Discharge today Herve Wallace MD R1 Feb 23, 2017 08:12
--- NOTE | 2017-02-23 09:34 | MP ---
cc: LEONA ABREU MD DATE OF SURGERY 02/20/17 PREOPERATIVE DIAGNOSIS Term intrauterine at 39 weeks with a history of multiple shoulder dystocia delivery now for elective section and tubal ligation. She desires sterilization procedure. POSTOPERATIVE DIAGNOSIS 1. Term intrauterine at 39 weeks with a history of multiple shoulder dystocia delivery now for elective section and tubal ligation. She desires sterilization procedure. 2. Meconium-stained amniotic fluid PROCEDURE PERFORMED Primary low transverse section. SURGEON Butch. MD Jamie ANESTHESIA Spinal. PREOPERATIVE NOTE The patient is a 21-year-old white female G3, P2, two previous vaginal deliveries were both shoulders dystocias with broken clavicles on both babies. She now opts for delivery with tubal ligation desiring permanent sterilization at this time. PROCEDURE IN DETAIL The patient was taken to the operating room and placed in supine position on the operating table. Adequate spinal anesthesia was administered. She was prepped and draped for abdominal surgery. A Pfannenstiel incision was made in the lower abdomen ___sharply. The fascia dissected off the rectus muscle, rectus split in the midline and the cavity entered sharply. The incision was extended superiorly and inferiorly. Bladder blade was placed lower edge of incision and the visceral peritoneum on the lower uterine segment was reflected off and down and placed on the bladder blade. A transverse hysterotomy was now extended bluntly bilaterally. Meconium-stained amniotic fluid noted at that time. Delivery was at 11:32 a.m. A female infant, weight 3670 grams, 8/8. There were no complications at delivery. Delayed cord clamping noted. Cord blood obtained. Placenta manually extracted. The uterus exteriorized and the hysterotomy closed with running layer of 0 chromic followed by imbricating suture of same. Hemostasis achieved with a stick tie. The uterus was elevated and blood suctioned cul-de-sac and gutters. The visceral peritoneum was reapproximated using 2-0 Vicryl in a running suture. The tubes were then tied. The left tube was elevated with a [place]. A hemostat passed through the mesosalpinx and 2-0 plain free ties pulled through the mesosalpinx and the tube was tied fore and aft and the intervening segment of tube was excised and sent to pathology. The same was done on the opposite side without difficulty. There were no complications at procedure. The uterus was placed in the peritoneal cavity. The parietal peritoneum closed in running layer of 2-0 Vicryl. Rectus muscle reapproximated with stick ties of chromic. The fascia closed in running layer of 0 Vicryl. Subcutaneous tissues reapproximated with a running 3-0 plain suture. The skin closed with subcuticular stitch of 3-0 Monocryl on a curved needle. Steri-Strips and pressure dressing applied. The estimated blood loss was 500 mL. No complications. Sponge and needle counts were correct x2. The patient was taken to recovery in stable condition. The baby went to NICU due to C-PAP and made for assistive respirations. MD ISHAAN Su/ /1:28 PM /9:36 AM
== END 2017-02-23 12:42 | disposition home or self-care (01) | DRG 766 ==
LOC: H2EB 08:44 → H1EA 14:28
PROVIDERS: ADMIT Obstetrics & Gynecology Maternal & Fetal Medicine; ATTEND Obstetrics & Gynecology Maternal & Fetal Medicine
PROC: 10D00Z1 Extraction of Products of Conception, Low, Open Approach (ICD-10-PCS; principal; 2017-02-20)
PROC: 0UB70ZZ Excision of Bilateral Fallopian Tubes, Open Approach (ICD-10-PCS; 2017-02-20)
DX: O75.89 Other specified complications of labor and delivery (principal); F17.210 Nicotine dependence, cigarettes, uncomplicated; O99.333 Smoking (tobacco) complicating pregnancy, third trimester; O77.0 Labor and delivery complicated by meconium in amniotic fluid; Z87.59 Personal history of other complications of pregnancy, childbirth and the puerperium; Z37.0 Single live birth; Z3A.39 39 weeks gestation of pregnancy; Z30.2 Encounter for sterilization
CPT/HCPCS: 59025; 80053; 80307; 81001; 82948; 85025; 86850; 86900; 86901; 87086; 88302; J0131; J1885; J2590; J7120

== ENCOUNTER 2017-06-25 22:15 | Emergency (ER) | payer MEDICAID ==
[~2017-06-25] VITALS: Ht 157.5 cm; Wt 76.1 kg
[~2017-06-25 22:15] MED LIST changes: +IBUP-232 PO; -LANC1MIS74; -ONETTES4
[2017-06-25 23:08] VITALS: BP 125/73; PULSE 87; RESP 18; TEMP 97.6; O2SAT 97
[2017-06-26] MEDS ORDERED: IBUP1TAB7 PO (04:00)
== END 2017-06-26 00:05 | disposition left against medical advice (07) ==
LOC: PHED 22:15
DX: R30.0 Dysuria (principal); R10.9 Unspecified abdominal pain; Z53.21 Procedure and treatment not carried out due to patient leaving prior to being seen by health care provider
CPT/HCPCS: 99281

== ENCOUNTER 2017-06-26 00:21 | Emergency (ER) | payer MEDICAID ==
[~2017-06-26] VITALS: Ht 157.5 cm; Wt 78.0 kg
[2017-06-26 00:26] VITALS: BP 126/70; PULSE 81; RESP 18; TEMP 98.3; O2SAT 100
[2017-06-26 02:43] LABS: BILIRUBIN, URINE NEG (NEG); BLOOD, URINE MOD (NEG); GLUCOSE,URINE NEG (NEG); KETONE, URINE NEG (NEG); MUCUS URINE FEW /lpf (OCC); NITRITE,URINE NEG (NEG); PH, URINE 5.5 (5.0-8.5); URINE COLOR YELLOW (YELLW/STRAW); URINE LEUKOCYTE ESTERASE NEG (NEG)
--- NOTE | 2017-06-26 02:44 | PD ---
HPI . Abdominal pain Chief Complaint: Abdominal Pain Time Seen by Provider: 02:05 Travel History International Travel<30 days: No Contact w/Intl Traveler<30days: No Traveled to known affect area: No History of Present Illness HPI This patient presents with chief complaint of left lower quadrant abdominal pain. Onset was yesterday. The pain radiates from the left lower quadrant to the left flank. It is associated with painful urination. She rates the pain 9/ 10. She has not noticed any modifying factors. She denies any associated GI symptoms such as nausea, vomiting or diarrhea. She states that she is currently menstruating but that there is nothing abnormal about it. She denies any vaginal discharge or dyspareunia. She has not been running a fever. She denies any previous similar history. PFSH Past Medical History Hx Anticoagulant Therapy: No ADHD: No Weight (Kg): 3 Depression: Yes Cancer: No Cardiovascular Problems: No Chemotherapy: No Cerebrovascular Accident: No Diabetes: No Diminished Hearing: No Headaches: No Psychiatric: Yes (DEPRESSION) Respiratory: No Immunizations Current: Yes Migraines: Yes Seizures: No Thyroid Disease: No Ulcer: No Tetanus Vaccination: < 5 Years Influenza Vaccination: No ?: Not : 1 Para: 1 Past Surgical History Surgical History: No Previous Surgery Other Surgery: No Social History Alcohol Use: No Tobacco Use: Yes Substance Use: No Allergies-Medications (Allergen,Severity, Reaction): Coded Allergies: ampicillin (Unverified Allergy, Severe, rash, 06/26/17) penicillin G (Unverified Allergy, Severe, RASH, 06/26/17) amoxicillin (Verified Allergy, Intermediate, rash, 06/26/17) Reported Meds & Prescriptions Reported Meds & Active Scripts Active No Active Prescriptions or Reported Medications Review of Systems Except as stated in HPI: all other systems reviewed are Neg General / Constitutional: No: Fever, Chills Gastrointestinal: Positive: Abdominal Pain, No: Nausea, Vomiting, Diarrhea Genitourinary: Positive: Dysuria, Vaginal Bleeding (Currently menstruating), No : Urgency, Frequency, Dyspareunia, Discharge Physical Exam Narrative GENERAL: Awake and alert and in no acute distress. SKIN: warm/dry. HEAD: Normocephalic. Atraumatic. EYES: Pupils equal and round. No scleral icterus. No injection or drainage. ENT: No nasal bleeding or discharge. Mucous membranes pink and moist. NECK: Trachea midline. Full range of motion without pain.. CARDIOVASCULAR: Regular rate and rhythm. RESPIRATORY: No accessory muscle use. Clear to auscultation. Breath sounds equal bilaterally. GASTROINTESTINAL: Abdomen soft. Left lower quadrant abdominal tenderness. Bowel sounds present. Nondistended. No CVA tenderness. MUSCULOSKELETAL: No obvious deformities. NEUROLOGICAL: Awake and alert. No obvious cranial nerve deficits. Motor grossly within normal limits. Normal speech. PSYCHIATRIC: Appropriate mood and affect; insight and judgment normal. Data Data Last Documented VS Vital Signs Date Time Temp Pulse Resp B/P (MAP) Pulse Ox O2 Delivery O2 Flow Rate FiO2 06/26/17 00:26 98.3 81 18 126/70 (88) [address] Abd/Pel W/O Iv Contrast (06/26/17 02:14) Urinalysis - C+S If Indicated (06/26/17 02:14) Ed Urine Pregnancytest Poc (06/26/17 02:14) Ketorolac Inj (Toradol Inj) (06/26/17 04:00) Labs Laboratory Tests Test 06/26/17 02:25 Urine Color YELLOW Urine Turbidity CLEAR Urine pH 5.5 Urine Specific [place] 1.024 Urine Protein NEG mg/dL Urine Glucose (UA) NEG mg/dL Urine Ketones NEG mg/dL Urine Occult Blood MOD Urine Nitrite NEG Urine Bilirubin NEG Urine Urobilinogen LESS THAN 2.0 MG/DL Urine Leukocyte Esterase NEG Urine RBC 10 /hpf Urine WBC LESS THAN 1 /hpf Urine Mucus FEW /lpf Microscopic Urinalysis Comment CULT NOT INDICATED MDM Medical Decision Making Medical Screen Exam Complete: Yes Emergency Medical Condition: Yes Differential Diagnosis Differential diagnosis of abdominal pain includes but is not limited to gastritis, pancreatitis, hepatitis, gastroenteritis, constipation, urinary retention, peptic ulcer disease, diverticulitis or appendicitis Narrative Course This patient presents with left lower quadrant abdominal pain which radiates to her left flank. She looks comfortable. She does have some left lower quadrant tenderness but no guarding or rebound. test is pending. Noncontrasted CT of the abdomen and pelvis will be done to look for kidney stone. UA is negative except for blood. She is on her menstrual cycle. Last Impressions Abdomen/Pelvis CT 06/26/17 0214 Signed Impressions: Service Date/Time: Monday, June 26, 2017 03:27 - CONCLUSION: 1. Small amount of fluid posterior to the uterus which is a nonspecific finding and can be physiologic in a female patient of this age. 2. The adnexa are unremarkable on this noncontrast exam. 3. Unremarkable bowel gas pattern.. Benja Colorado MD No significant etiology for abdominal pain was discovered. This patient is stable for discharge to home. I will give her a shot of Toradol prior to discharge. Diagnosis Primary Impression: LLQ abdominal pain Patient Instructions: Abdominal Pain (ED), General Instructions Med/Other Pt SpecificInfo: Prescription(s) given Scripts Ibuprofen (Ibuprofen) 800 Mg Tab 800 MG PO Q8H Y for Pain/Inflammation, #60 TAB 0 Refills Prov: Zara Wilson MD 06/26/17 Disposition: 01 DISCHARGE HOME Condition: Stable Zara Wilson MD Jun 26, 2017 02:44
--- NOTE | 2017-06-26 03:42 | RADRPT ---
EXAM DATE/TIME: 06/26/2017 03:27 [facility] COMPARISON: No previous studies available for comparison. INDICATIONS : Left lower abdominal pain. ORAL CONTRAST: No oral contrast ingested. RADIATION DOSE: 6.77 CTDIvol (mGy) MEDICAL HISTORY : None SURGICAL HISTORY : None. ENCOUNTER: Initial ACUITY: 1 day PAIN SCALE: 6/10 LOCATION: Left lower quadrant TECHNIQUE: Volumetric scanning of the abdomen and pelvis was performed. Using automated exposure control and ad justment of the mA and/or kV according to patient size, radiation dose was kept as low as reasonably achievable to obtain optimal diagnostic quality images. DICOM format image data is available electro nically for review and comparison. FINDINGS: LOWER LUNGS: The visualized lower lungs are clear. LIVER: Homogeneous density without lesion. There is no dilation of the biliary tree. No calcified gallston es. SPLEEN: Normal size without lesion. PANCREAS: Within normal limits. KIDNEYS: Normal in size and shape. There is no mass, stone, or hydronephrosis. ADRENAL GLANDS: Within normal limits. VASCULAR: There is no aortic aneurysm. BOWEL/MESENTERY: The stomach, small bowel, and colon demonstrate no acute abnormality. There is no free intraperitone al air. There is a small amount of low-density fluid posterior to the uterus. ABDOMINAL WALL: Within normal limits. RETROPERITONEUM: There is no lymphadenopathy. BLADDER: No wall thickening or mass. REPRODUCTIVE: Within normal limits. INGUINAL: There is no lymphadenopathy or hernia. MUSCULOSKELETAL: Within normal limits for patient age. CONCLUSION: 1. Small amount of fluid posterior to the uterus which is a nonspecific finding and can be physiologi c in a female patient of this age. 2. The adnexa are unremarkable on this noncontrast exam. 3. Unremarkable bowel gas pattern.. Benja Colorado MD on June 26, 2017 at 3:38 Board Certified Radiologist. This report was verified electronically.
[2017-06-26] MEDS ORDERED: KETOROLAC TROMETHAMINE 60 MG/2 ML (IM) VIAL IM ONE (04:00)
[2017-06-26] MEDS ORDERED: IBUP1TAB7 PO (04:00)
== END 2017-06-26 04:40 | disposition home or self-care (01) ==
LOC: NEPE 00:21
DX: R10.32 Left lower quadrant pain (principal); F32.9 Major depressive disorder, single episode, unspecified; Z72.0 Tobacco use
CPT/HCPCS: 74176; 81001; 84703; 96372; 99284; J1885

== ENCOUNTER 2018-03-24 08:09 | Inpatient (IN) ==
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
[2018-03-24 09:20] LABS: Baso # (Auto) 0.1 th/mm3 (0.0-0.2); Baso % (Auto) 0.6 % (0.0-2.0); Eos # (Auto) 0.3 th/mm3 (0.0-0.4); Eos % (Auto) 3.1 % (0.0-4.0); Hematocrit 48.1 % (35.0-46.0); Hemoglobin 16.3 gm/dL (11.6-15.3); Lymph # (Auto) 3.2 th/mm3 (1.0-4.8); Lymph % (Auto) 33.4 % (9.0-44.0); Mean Corpuscular HGB Conc 33.8 % (32.0-36.0); Mean Corpuscular Volume 88.9 fL (80.0-100.0); Mean Platelet Volume 8.8 fL (7.0-11.0); Mono # (Auto) 0.4 th/mm3 (0.0-0.9); Mono % (Auto) 4.2 % (0.0-8.0); Neut # (Auto) 5.6 th/mm3 (1.8-7.7); Neut % (Auto) 58.7 % (16.0-70.0); Platelet Count 274 th/mm3 (150-450); Red Blood Count 5.41 mil/mm3 (4.00-5.30); Red Cell Distribution Width 14.4 % (11.6-17.2); White Blood Count 9.5 th/mm3 (4.0-11.0)
[2018-03-24 09:27] LABS: Alanine Aminotransferase 33 U/L (10-53)
[2018-03-24 09:37] LABS: Alkaline Phosphatase 92 U/L (45-117); Total Protein 9.5 g/dL (6.4-8.2)
[2018-03-24 09:46] LABS: Albumin 4.6 g/dL (3.4-5.0); Anion Gap 9 meq/L (5-15); Aspartate Aminotransferase 25 U/L (15-37); Blood Urea Nitrogen 10 mg/dL (7-18); Calcium 8.8 mg/dL (8.5-10.1); Carbon Dioxide 24.4 meq/L (21.0-32.0); Chloride 105 meq/L (98-107); Glomerular Filtration Rate 81 mL/min (>89); Glucose,Random 94 mg/dL (74-106); Magnesium 2.3 mg/dL (1.5-2.5); Potassium 3.5 meq/L (3.5-5.1); Sodium 138 meq/L (136-145)
[2018-03-24 09:47] LABS: Alcohol 179 mg/dL (0-5)
[2018-03-24 10:21] LABS: Amphetamine Screen,Urine Neg (Neg); Barbiturate Screen,Urine Neg (Neg); Cannabinoid Screen,Urine Neg (Neg); Cocaine Screen,Urine Pos (Neg)
[2018-03-24 10:32] LABS: Opiate Screen,Urine Neg (Neg)
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
[2018-03-24] MEDS ORDERED: Aluminum/Magnesium/Simethacone Susp 30 ML UDC PO PRN (17:35)
[2018-03-24] MEDS ORDERED: Acetaminophen 325 MG Tablet PO PRN (17:35)
[2018-03-24] MEDS ORDERED: Haloperidol Inj 5 MG/ML Ampul IV.PUSH PRN (17:40)
[2018-03-24] MEDS ORDERED: LORazepam 1 MG Tablet PO PRN (17:40)
[2018-03-25 08:00] LABS: Calcium 8.3 mg/dL (8.5-10.1); Carbon Dioxide 28.3 meq/L (21.0-32.0)
[2018-03-25 08:03] LABS: Chol/HDL Ratio 2.96 Ratio
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
[2018-03-25 15:37] LABS: Hemoglobin A1c 5.3 % (4.3-6.0)
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
--- NOTE | 2018-03-26 11:35 | ECG ---
Date Performed: 03/25/2018 Time Performed: 12:36:03 PTAGE: 22 years EKG: Sinus rhythm BORDERLINE RIGHT AXIS DEVIATION BORDERLINE ECG PREVIOUS TRACING : 11/21/2011 21.28 DOCTOR: Mayco Werner Interpretating Date/Time 03/26/2018 11:33:59
== END 2018-03-26 13:30 | disposition home or self-care (01) ==
LOC: NEPD 08:09 → NEDA 17:40 → H260 18:49
PROVIDERS: ADMIT Psychiatry & Neurology Child & Adolescent Psychiatry; ATTEND Psychiatry & Neurology Child & Adolescent Psychiatry